=== PATIENT | female | born 1940 | race Two or more races ===

== ENCOUNTER 2018-10-30 10:17 | Outpatient (CLI) | payer OTHER | END 2018-10-30 12:40 | disposition home or self-care (01) | LOC: SONOGRAMA 10:17 | DX: E04.2 Nontoxic multinodular goiter (principal) ==

== ENCOUNTER 2022-08-25 09:42 | Outpatient (CLI) | payer OTHER | END 2022-08-25 09:44 | disposition home or self-care (01) | LOC: SONOGRAMA 09:42 | PROVIDERS: ATTEND Pathology Anatomic Pathology & Clinical Pathology | DX: D34 Benign neoplasm of thyroid gland (principal); E06.3 Autoimmune thyroiditis; E04.2 Nontoxic multinodular goiter ==